=== PATIENT | female | born 1995 | race Two or more races ===

== ENCOUNTER 2019-03-31 12:57 | Emergency (ER) | payer OTHER, MEDICAID ==
[~2019-03-31] VITALS: Ht 165.1 cm; Wt 63.5 kg
[2019-03-31 13:05] VITALS: BP 134/84
--- NOTE | 2019-03-31 13:18 | NUR ---
Patient discharged to home in stable condition. Written and verbal after care instructions given. Patient verbalizes understanding of instruction.
== END 2019-03-31 13:19 | disposition home or self-care (01) ==
LOC: ER 13:03
DX: S91.002A Unspecified open wound, left ankle, initial encounter (principal); X58.XXXA Exposure to other specified factors, initial encounter; Y93.89 Activity, other specified; Y92.89 Other specified places as the place of occurrence of the external cause; Y99.8 Other external cause status

== ENCOUNTER 2021-07-20 15:43 | Emergency (ER) | payer OTHER ==
[~2021-07-20] VITALS: Ht 165.1 cm; Wt 77.1 kg
--- NOTE | 2021-07-20 15:49 | NUR ---
BIBS C/O BODY ACHES, HEADACHE, SORETHROAT SINCE YESTERDAY, VOMITING THIS MORNING. DR FULLER CONSULTING PT.
[2021-07-20 15:59] VITALS: BP 147/86
--- NOTE | 2021-07-20 16:30 | NUR ---
COVID ANTIGEN SWAB DONE AND SENT TO THE LAB.
--- NOTE | 2021-07-20 16:33 | NUR ---
Patient discharged to home in stable condition. Written and verbal after care instructions given. Patient verbalizes understanding of instruction.
== END 2021-07-20 16:33 | disposition home or self-care (01) ==
LOC: ER 15:45
DX: U07.1 COVID-19 (principal)
CPT/HCPCS: 87426; 99283; C9803